=== PATIENT | male | born 1970 | race African-American/Black ===

== ENCOUNTER 2021-10-22 21:47 | Emergency (ER) | payer BC ==
[~2021-10-22] VITALS: Ht 185.4 cm; Wt 72.7 kg
[2021-10-22 22:43] VITALS: BP 129/88
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
== END 2021-10-22 23:10 ==
LOC: ER 21:47
DX: Z04.1 Encounter for examination and observation following transport accident (principal); Z02.79 Encounter for issue of other medical certificate; F17.200 Nicotine dependence, unspecified, uncomplicated
CPT/HCPCS: 99283